=== PATIENT | male | born 1950 | race Caucasian/White ===

== ENCOUNTER 2018-06-16 13:15 | Outpatient (CLI) | payer MEDICARE | END 2018-06-16 23:59 | disposition home or self-care (01) | LOC: RAD 13:15 | PROVIDERS: ATTEND Internal Medicine Cardiovascular Disease | DX: I63.9 Cerebral infarction, unspecified (principal); R42 Dizziness and giddiness; Z88.0 Allergy status to penicillin; Z88.2 Allergy status to sulfonamides | CPT/HCPCS: 70553; A9579 ==